=== PATIENT | female | born 2000 | race Caucasian/White ===

== ENCOUNTER 2021-02-19 11:26 | Emergency (ER) | payer OTHER, SELFPAY ==
[2021-02-19 11:38] VITALS: BP 127/86; PULSE 80; RESP 16; TEMP 36.9; O2SAT 98
== END 2021-02-20 00:18 | disposition left against medical advice (07) ==
LOC: ANHED 15:19
PROVIDERS: PCP Pediatrics
DX: Z53.21 Procedure and treatment not carried out due to patient leaving prior to being seen by health care provider (principal)
CPT/HCPCS: 99199

== ENCOUNTER 2023-02-12 15:56 | Emergency (ER) | payer BC, SELFPAY ==
--- NOTE | ~2023-02-12 | XR_ITS ---
EXAMINATION: XR chest 2V DATE: 02/12/2023 16:44 INDICATION: Chest pain radiating down left arm. TECHNIQUE: Frontal and lateral views of the chest were obtained. COMPARISON: None. FINDINGS: There is no pneumonia, pleural effusion, or pneumothorax. The heart size is normal. There i s a left chest wall pacer with leads in the right atrium and right ventricle. IMPRESSION: 1. No acute cardiopulmonary disease. Reviewed, dictated and finalized at location [facility]
--- NOTE | 2023-02-12 15:57 | ECG_ITS ---
Measurements Intervals [place] Rate: 67 P: 50 [place]: 139 QRS: 48 QRSD: 90 T: 26 QT: 364 QTc: 385 Interpretive Statements SINUS RHYTHM NORMAL ECG NO PREVIOUS ECG AVAILABLE FOR COMPARISON Electronically Signed On 02-12-2023 16:11:37 BIRD RAISER by Chucky Clifton M.D.
[2023-02-12 15:59] VITALS: BP 132/86; PULSE 78; RESP 16; TEMP 36.8; O2SAT 99
[2023-02-12 16:19] LABS: Basophils Absolute Auto 0.1 K/mm3 (0.0-0.1); Basophils Percent Auto 0.7 % (0.2-1.2); Eosinophils Absolute Auto 0.1 K/mm3 (0-0.3); Eosinophils Percent Auto 1.2 % (0-4.4); Hematocrit 44.5 % (37.0-47.0); Hemoglobin 14.4 g/dL (12.0-15.0); Immature Granulocyte Absolute 0.02 K/mm3 (0.00-0.031); Immature Granulocyte Percent A 0.2 % (0-0.5); Lymphocytes Absolute Auto 2.22 K/mm3 (0.9-3.2); Lymphocytes Percent Auto 23.7 % (18.3-44.2); Mean Corpuscular HGB Conc 32.4 g/dl (32-36); Mean Corpuscular Hemoglobin 29.8 pg (26-34); Mean Corpuscular Volume 91.9 fl (80-100); Monocytes Absolute Auto 0.5 K/mm3 (0.1-0.6); Monocytes Percent Auto 5.7 % (2.6-8.5); Neutrophils Absolute Auto 6.4 K/mm3 (1.3-6.7); Neutrophils Percent Auto 68.5 % (45.5-73.1); Platelet Count Result 395 k/mm3 (150-375); Red Blood Count 4.84 M/mm3 (4.2-5.4); Red Cell Distribution Width 13.2 % (11.5-14.5); White Blood Count 9.4 K/mm3 (4.5-10.0)
[2023-02-12 16:29] LABS: INR 0.9; Prothrombin Time 12.9 Seconds (11.1-14.7)
[2023-02-12 16:30] LABS: Partial Thromboplastin Time 26.8 SECONDS (22.3-36.8)
[2023-02-12 16:30] LABS: Alanine Aminotransferase 14 U/L (6-35); Albumin Level 4.8 g/dL (3.5-5.1); Alkaline Phosphatase 72 U/L (38-126); Anion Gap 9 mmol/L (8-16); Aspartate Amino Transferase 24 U/L (14-36); Bilirubin,Total 0.6 mg/dL (0.2-1.3); Blood Urea Nitrogen 14 mg/dL (7-17); Calcium 9.5 mg/dL (8.4-10.2); Carbon Dioxide 27 mmol/L (22-30); Chloride 103 mmol/L (98-107); Estimated CRCL calculation 112 ml/min; Estimated Glomerular Filt Rate > 60; Glucose 91 mg/dL (65-110); Lipase 80 U/L (23-300); Sodium 139 mmol/L (137-145)
[2023-02-12 16:41] LABS: Troponin I < 0.012 ng/mL (0.000-0.034)
--- NOTE | 2023-02-12 17:44 | ED.GENADULT ---
HPI - General Adult General Chief complaint: Chest Pain <Aditya Carbajal PA-C - Last Filed: 02/12/23 23:51> Stated complaint: chest pain, hx pacemaker <Aditya Carbajal PA-C - Last Filed: 02/12/23 23:51> Time Seen by Provider: 02/12/23 17:28 <Aditya Carbajal PA-C - Last Filed: 02/12/23 23:51> Source: patient <Aditya Carbajal PA-C - Last Filed: 02/12/23 23:51> Mode of arrival: ambulatory <Aditya Carbajal PA-C - Last Filed: 02/12/23 23:51> Limitations: no limitations <Aditya Carbajal PA-C - Last Filed: 02/12/23 23:51> History of Present Illness HPI narrative: This is a 22-year-old female with PMH of sick sinus syndrome s/p pacemaker placement August 2022, who presents to the ED with chief complaint of chest pain that began acutely today. Reports this started while at work at [employer]. 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 Reports pain location in the left side of the chest and radiates into the neck and left arm on occasion. Described as a stabbing like pain. she states that it has been easing off ever since arrival in the ED, started at 10/10 but now 5 or 6/10. endorses intermittent shortness of breath as well as palpitations for the past several weeks but none now. Denies syncope, nausea, vomiting, cough, abdominal pain. states she has told her cable repairer over at [facility] about the shortness of breath and palpitations episode, they do not feel that it is due to heart and referred her to a PCP but she has not gotten with a PCP yet. <Aditya Carbajal PA-C - Last Filed: 02/12/23 23:51> Related Data Home medications: Home Medications Medication Instructions Recorded Confirmed metoprolol succinate 25 mg 25 mg PO DAILY 01/20/23 01/20/23 tablet,extended release 24 hr <MIREYA Bryant Last Filed: 02/12/23 23:51> Allergies/adverse reactions: Allergies Allergy/AdvReac Type Severity Reaction Status Date / Time strawberry Allergy Severe Hives Verified 02/12/23 17:29 <Aditya Carbajal PA-C - Last Filed: 02/12/23 23:51> Review of Systems Review of Systems: All systems as dictated in HPI <Aditya Carbajal PA-C - Last Filed: 02/12/23 23:51> PMFSH Past Medical History Medical History: Medical History (Updated 02/13/23 @ 00:00 by Mike Parrish) Cardiac pacemaker in situ (08/24/22) pacemaker implanted Irregular periods/menstrual cycles Sick sinus syndrome (08/24/22) <Aditya Carbajal PA-C - Last Filed: 02/12/23 23:51> Social History Social History: Social History (Updated 01/20/23 @ 08:52 by Amina Chou [facility]) Smoking status: Current every day smoker Tobacco type: e-cigarettes/vaping Second hand tobacco smoke exposure: Yes Alcohol intake: former Alcohol use details: socially Substance use: current Substance use type: marijuana Other substance usage details: 2-3 times a week Lack of Transportation: No Lack of Food: Never True Current Housing: Decline to Answer Concerned About Future Housing: No Difficulty Paying Gas/Electric Bills: No Difficulty Paying for Meds: No Currently Unemployed: No Education: Decline to Answer Difficulty w/ Childcare or Family Care: No Living arrangements: with family Additional living arrangements comments: single Occupation/Education: occupation Additional occupation/education comments: [employer] Gender identity (if verbalized by the patient): Female Sexual Orientation (if Verbalized by the Patient): Straight or Heterosexual <Aditya Carbajal PA-C - Last Filed: 02/12/23 23:51> Exam Narrative: GENERAL: Well-appearing, well-nourished, and in no acute distress. HEAD: Normocephalic, atraumatic. EYES: PERRLA and EOMI. ENT: Nares clear, no rhinorrhea or epistaxis. Mucous membranes moist. Oropharynx without tonsillar hypertrophy exudate or other lesions. NECK: Supple. No adenopathy or masses. CHEST: No respiratory
--- NOTE | 2023-02-12 18:53 | ECG_ITS ---
Measurements Intervals [place] Rate: 66 P: 56 [place]: 143 QRS: 39 QRSD: 92 T: 22 QT: 376 QTc: 396 Interpretive Statements SINUS RHYTHM WITH SINUS ARRHYTHMIA NORMAL ELECTROCARDIOGRAM COMPARED TO ECG 02/12/2023 16:06:27 NO DIFFERENCE Electronically Signed On 02-13-2023 17:27:37 [employer] SUPERVISOR by Rodriguez Ott M.D.
[2023-02-12 18:57] VITALS: BP 125/64; PULSE 83; RESP 18; O2SAT 98
[2023-02-12 19:40] LABS: Troponin I < 0.012 ng/mL (0.000-0.034)
[2023-02-12 20:12] VITALS: BP 110/84; PULSE 78; RESP 16; O2SAT 99
== END 2023-02-12 20:14 | disposition home or self-care (01) ==
PROVIDERS: Emergency Medicine; Emergency Provider Physician Assistant
DX: R07.89 Other chest pain (principal); I49.5 Sick sinus syndrome; F17.290 Nicotine dependence, other tobacco product, uncomplicated; Z95.0 Presence of cardiac pacemaker
CPT/HCPCS: 36415; 71046; 80053; 83690; 84484; 85025; 85610; 85730; 93005; 99284